=== PATIENT | male | born 1990 | race African-American/Black ===

== ENCOUNTER 2021-05-31 02:43 | Emergency (ER) | payer SELFPAY ==
[2021-05-31 02:57] VITALS: BP 156/95; PULSE 76; RESP 20; TEMP 36.7; O2SAT 99; BMI 33.5
--- NOTE | 2021-05-31 03:24 | ED_ITS ---
HPI - Eye Problem General Chief complaint: Eye Problems Stated complaint: object in eye Time Seen by Provider: 05/31/21 03:00 Source: patient Mode of arrival: ambulatory Limitations: no limitations History of Present Illness HPI Narrative: Patient comes emergency room complaining of right-sided eye pain. Patient states that earlier today he was welding metal. Patient states he thinks he has a foreign object in his left eye. Patient complaining burning sensation. Patient states that the burning/discomfort did not start until few hours after he stops welding. Patient's right eye is erythematous but not pain ful . Patient states that his eye vision bilaterally is at baseline Related Data Previous Rx's Medication Instructions Recorded erythromycin 5 mg/gram (0.5 %) eye 0.5 inch OPHTHALMIC (EYE) QID #3.5 05/31/21 ointment g ibuprofen 600 mg tablet 600 mg PO Q6H PRN #10 tab 05/31/21 Allergies Allergy/AdvReac Type Severity Reaction Status Date / Time No Known Allergies Allergy Verified 05/31/21 03:00 Review of Systems Review of Systems: Constitutional : No Weight loss, No Fever, No Chills, No Night Sweats, No Fatigue, No Malaise ENT/Mouth : No Hearing loss, No Ear Pain, No Nasal Congestion, No Sinus Pain, No Hoarseness, No sore throat, No Rhinorrhea, No Swallowing Difficulty Eyes: Complaining of left-sided eye pain, redness, foreign body sensation Cardiovascular : No Chest Pain, No SOB, No Dyspnea on Exertion, No Orthopnea, No Edema, No Palpitations Respiratory : No Cough, No Sputum, No Wheezing, No Smoke Exposure, No Dyspnea Gastrointestinal : No Nausea, No Vomiting, No Diarrhea, No Constipation, No abdominal Pain, No Hematochezia, No Melena Genitourinary : no irregular bleeding, No Dysuria, No Urinary Frequency, No Hematuria, No Urinary Incontinence, No Urgency, No Flank Pain, No Urinary Flow Changes, No Hesitancy Musculoskeletal : No joint pain, No Myalgias, No Joint Swelling Skin : No Skin Lesions, No rash Neuro : No Weakness, No Numbness, No Paresthesias, No Loss of Consciousness, No Dizziness, No Headache Psych : No Anxiety/Panic, No Depression, No SI/HI/AH/VH, No Social Issues, Heme/Lymph: No Bruising, No Bleeding,No Lymphadenopathy Endocrine : No Polyuria, No Polydipsia, No Temperature Intolerance Physical Exam Vital Signs: Vital Signs: Last Vital Signs Temp 98.0 F 05/31/21 02:57 Pulse 76 05/31/21 02:57 Resp 20 05/31/21 02:57 BP 156/95 H 05/31/21 02:57 Pulse Ox 99 05/31/21 02:57 BMI result Body Mass Index 33.5 Const: Other: Appearance: Alert. Oriented X3. No acute distress. Eyes: Pupils equal, round and reactive to light. Fluorescein stain test shows possible mild right corneal burn at the 12 o'clock position. And patient's left eye, patient has 3 small foreign body objects. No scratches, no signs of vitreous humor fluid leakage ENT: Pharynx normal. Neck: Normal inspection. Neck supple. No lymph nodes noted. No crepitus CVS: Normal heart rate and rhythm. Pulses normal. Normal S1 and S2 Respiratory: No respiratory distress. Breath sounds normal. No Wheezing. No rales Abdomen: Soft and nontender. No rigidity. No distention. good BS x4 Skin: Skin warm and dry. Normal skin color. Normal skin turgor. Extremities: No lower extremity edema. No lower extremity edema. No Lacerations. No Rash Neuro: Oriented X 3. No motor deficit. No sensory deficit. Moving all extermities. No slurred speech. Course Course Course Narrative: Patient's eye was numbed with tetracaine. Two of the 3 foreign bodies were easily removed. 1 times still remains. I discussed with the patient that given the history of how the pain presented, it is likely that he will suddenly have corneal keratitis secondary to the flash burn from welding. Patient will be given prescription of pain medications, erythromycins ointment, patient is to follow-up with ophthalmology. Discharge Plan Discharge Clinical Impression: Welders' keratitis, Foreign body in eye Patient Disposition: Home, Self-Care Instructions: Corneal Flash Ordaz (ED), Eye Foreign Body (ED) Additional Instructions: Please follow-up with your primary care physician and ophthalmology tomorrow. If you have any worsening or new symptoms, please return to the emergency room or call 911 Prescriptions: New ibuprofen 600 mg tablet 600 mg PO Q6H PRN (Reason: pain) Qty: 10 RF: 0 erythromycin 5 mg/gram (0.5 %) ointment 0.5 inch ophthalmic (eye) QID Qty: 3.5 RF: 0 Referrals: Mikie Hsieh [Physician] - 2 days
[2021-05-31] MEDS: Tetracaine HCl/PF 0.5% Oph Sol 4 ML DROPS 3 DROP EYE-RIGHT (03:35)
[2021-05-31] MEDS: Fluorescein Sodium STRIP 1 STRIP EYE-BOTH (03:35)
== END 2021-05-31 04:03 | disposition home or self-care (01) ==
LOC: HO.ED 03:38
PROVIDERS: Emergency Provider Emergency Medicine
DX: H16.131 Photokeratitis, right eye (principal); W89.8XXA Exposure to other man-made visible and ultraviolet light, initial encounter; T15.02XA Foreign body in cornea, left eye, initial encounter; X58.XXXA Exposure to other specified factors, initial encounter
CPT/HCPCS: 99283; 99284

== ENCOUNTER 2022-12-31 22:11 | Emergency (ER) | payer SELFPAY ==
[2022-12-31 22:23] VITALS: BP 133/76; PULSE 66; RESP 18; TEMP 36.6; O2SAT 99; BMI 32.8
--- NOTE | 2022-12-31 23:45 | ED.EYEPROB ---
HPI - Eye Problem General Chief complaint: Eye Problems Stated complaint: foreign object hit L eye. Ordaz/ sensitive to ligh Time Seen by Provider: 12/31/22 23:24 Source: patient Mode of arrival: ambulatory Limitations: no limitations History of Present Illness HPI Narrative: 32 yo male presents to the ER for evaluation of left eye pain, burning and FB sensation after he got his in the eye with brush when he was using a chain saw to trim bushes at 5pm today. He states he had immediate pain and was unable to open the eye for 15 minutes. When he eventually opened his eye he had blurry vision in the left eye. He tried flushing with water and using OTC eye drops but has ongoing pain, photophobia, burning sensation and FB sensation. Baseline has normal vision, does not have an eye doctor. MD chief complaint: eye pain, eye redness, eye injury, vision change and foreign body Onset (ago): hour(s) Onset description: sudden Location: left eye Eye Symptoms: burning, redness, pain, foreign body sensation and blurry vision Place: street/outdoors Mechanism: direct trauma Severity: moderate If Pain, Quality: burning and aching Context: trauma Associated symptoms: none Treatments Prior to Arrival: irrigated eye and OTC eye drops Related Data Patient tetanus UTD: Yes Previous Rx's Medication Instructions Recorded erythromycin 5 mg/gram (0.5 %) eye 0.5 inch ophthalmic (eye) QID #3.5 05/31/21 ointment grams ibuprofen 600 mg tablet 600 mg PO Q6H PRN pain #10 tabs 05/31/21 erythromycin 5 mg/gram (0.5 %) eye 0.5 inch ophthalmic (eye) BID #3.5 12/31/22 ointment grams ibuprofen 600 mg tablet 600 mg PO Q8H PRN pain #20 tabs 12/31/22 Allergies Allergy/AdvReac Type Severity Reaction Status Date / Time No Known Allergies Allergy Verified 12/31/22 22:27 Review of Systems Review of Systems: Yes all other systems are reviewed and are negative PMFSH Social History Social History Advance Directives: No Advance Directives Information Provided: Yes Physical Exam Vital Signs: Vital Signs: Last Vital Signs Temp 98 F 12/31/22 22:23 Pulse 66 12/31/22 22:23 Resp 18 12/31/22 22:23 BP 133/76 12/31/22 22:23 Pulse Ox 99 12/31/22 22:23 O2 Del Method Room Air 12/31/22 22:23 BMI result Body Mass Index 32.8 Appearance: Alert. Oriented X3. No acute distress. HEENT: normocephalic, atraumatic. left eye is diffusely injected. PERRLA. EOMI. no FB appreciated. normal visualization of bilateral eyelids and surrounding structures. fluoroscene exam with 4 separate corneal abrasions, 2 over the pupil and 2 smaller abrasions inferior to the pupil. CVS: Normal heart rate and rhythm. Pulses normal. Respiratory: No respiratory distress. Skin: Skin warm and dry. Normal skin color. Normal skin turgor. No rashes. Extremities: normal inspection x4, Neuro: Oriented X 3. No motor deficit. No sensory deficit. Medications Administered Discontinued Medications Generic Name Dose Route Start Last Admin Trade Name Freq PRN Reason Stop Dose Admin Fluorescein Sodium 1 strip 12/31/22 23:25 12/31/22 23:35 Fluorescein Sodium Strip EYE-LEFT 12/31/22 23:26 1 strip ONCE ONE Administration Ibuprofen 600 mg 12/31/22 23:25 12/31/22 23:35 Ibuprofen 600 Mg Tablet PO 12/31/22 23:26 600 mg ONCE ONE Administration Tetracaine HCl 1 drop 12/31/22 23:25 12/31/22 23:35 Tetracaine Hcl/Pf 0.5% Oph Amarilys 4 Ml Drops EYE-LEFT 12/31/22 23:26 1 drop ONCE ONE Administration Medical Decision Making Medical Decision Making MDM Narrative: 32 yo male presenting with left eye pain, redness and FB sensation after he got wood in the eye while using a chain saw this evening. exam c/w extensive corneal abrasions. no visible FB. eye was irrigated extensively and he was started on topical ertythromycin ointment. he was encouraged to f/u with Optho given the extent of the abrasions. stable for d/c home with outpatient follow up. Differential Diagnosis Differential Diagnoses: The differential diagnosis associated with the presentation includes corneal abrasion, eye foreign body, no evidence of globe rupture Prescription Management I considered prescription management with: Antibiotic Critical Care Time Critical Care Time Critical Care Time: No Discharge Plan Discharge Clinical Impression: Corneal abrasion Patient Disposition: Home, Self-Care Instructions: Corneal Abrasion (DC) Additional Instructions: Use the prescribed antibiotic eye ointment 2 times per day for the next 7 days. Follow up with the eye doctor next week. name and number below, call for an appointment Take the prescribed anti-inflammatory as needed for pain Use over the counter saline to flush the eye as needed If you develop new or worsening symptoms call 911 or come back to the ER for further evaluation. Prescriptions: New erythromycin 5 mg/gram (0.5 %) ointment 0.5 inch ophthalmic (eye) BID Qty: 3.5 0RF ibuprofen 600 mg tablet 600 mg PO Q8H PRN (Reason: pain) Qty: 20 0RF No Action ibuprofen 600 mg tablet 600 mg PO Q6H PRN (Reason: pain) Qty: 10 0RF erythromycin 5 mg/gram (0.5 %) ointment 0.5 inch ophthalmic (eye) QID Qty: 3.5 0RF Rx Instructions: Apply to left eye Referrals: Mikie Hsieh [Physician] -
--- NOTE | 2022-12-31 23:55 | PC.NURSE ---
pt getting rid of brush and got some fragments of brush struck pt in the L eye causing itchiness, redness, burning denies vision changes/issues aox4 no apparent distress resting quietly with sunglasses on
--- NOTE | 2023-01-01 00:05 | PC.NURSE ---
Discharge instructions given and explained to pt No apparent distress aox4 all of pt's questions answered Ambulates safely/independently
== END 2023-01-01 00:06 | disposition home or self-care (01) ==
PROVIDERS: Emergency Provider Internal Medicine
DX: S05.02XA Injury of conjunctiva and corneal abrasion without foreign body, left eye, initial encounter (principal); W22.8XXA Striking against or struck by other objects, initial encounter; Y93.H2 Activity, gardening and landscaping; Y92.017 Garden or yard in single-family (private) house as the place of occurrence of the external cause; Y99.9 Unspecified external cause status
CPT/HCPCS: 99283; 99284